=== PATIENT | male | born 1955 | race Caucasian/White ===

== ENCOUNTER → 2017-08-29 | Outpatient (CLI) | payer OTHER ==
[~2017-08-29] MED LIST: ADVA100A INH; ALBU17I INH; ALBU6.7H INH; HYDR-3583 PO; ZOFR4TAB PO
[2017-08-29 13:51] LABS: AUTOMATED NEUTROPHIL # 4.4 TH/MM3 (1.8-7.7); BASOPHIL # 0.1 TH/MM3 (0-0.2); BASOPHIL % 0.7 % (0.0-2.0); EOSINOPHIL # 0.5 TH/MM3 (0-0.4); EOSINOPHIL % 5.9 % (0.0-4.0); HEMATOCRIT 47.6 % (39.0-51.0); HEMO FLAGS DIFF FINAL; LYMPH % 29.7 % (9.0-44.0); LYMPHOCYTE # 2.3 TH/MM3 (1.0-4.8); MEAN CELL VOLUME 89.3 FL (80.0-100.0); MEAN CORPUSCULAR HGB CONC 34.7 % (32.0-36.0); MONO % 7.6 % (0.0-8.0); NEUT % 56.1 % (16.0-70.0); PLATELET COUNT 189 TH/MM3 (150-450); RED BLOOD COUNT 5.33 MIL/MM3 (4.50-5.90); RED CELL DISTRIBUTION WIDTH 13.4 % (11.6-17.2); WHITE BLOOD COUNT 7.8 TH/MM3 (4.0-11.0)
[2017-08-29 15:06] LABS: ALT (GPT) 200 U/L (12-78); ANION GAP 7 MEQ/L (5-15); AST (GOT) 120 U/L (15-37); BICARBONATE 27.7 MEQ/L (21.0-32.0); BLOOD UREA NITROGEN 14 MG/DL (7-18); CHLORIDE 104 MEQ/L (98-107); GLOMERULAR FILTRATION RATE 83 ML/MIN (>89); GLUCOSE,FASTING 76 MG/DL (74-99); POTASSIUM 3.8 MEQ/L (3.5-5.1); SODIUM (NA) 139 MEQ/L (136-145)
[2017-08-29 15:08] LABS: ALKALINE PHOSPHATASE 78 U/L (45-117); TOTAL BILIRUBIN ADULT 0.7 MG/DL (0.2-1.0)
--- NOTE | 2017-08-30 14:30 | EKG ---
Date Performed: 08/29/2017 Time Performed: 13:14:18 PTAGE: 62 years EKG: Sinus rhythm NORMAL ECG NO PREVIOUS TRACING DOCTOR: Jerrell Ramirez Interpretating Date/Time 08/30/2017 14:23:16
== END ==
LOC: CPRE 12:57
PROVIDERS: ATTEND Orthopaedic Surgery
DX: Z01.810 Encounter for preprocedural cardiovascular examination (principal); Z01.812 Encounter for preprocedural laboratory examination; S46.212A Strain of muscle, fascia and tendon of other parts of biceps, left arm, initial encounter; X58.XXXA Exposure to other specified factors, initial encounter
CPT/HCPCS: 36415; 80053; 80074; 85025; 93005

== ENCOUNTER → 2017-08-31 | Day surgery (SDC) | payer OTHER ==
[~2017-08-31] VITALS: Ht 177.8 cm; Wt 100.2 kg
[~2017-08-31] MED LIST changes: +ACETAMINOPHEN 1000 MG/100 ML 100 ML IV ONE; +ACETAMINOPHEN/HYDROcodone 325 MG/5 MG TAB PO PRN; -ALBU17I INH; +BUPIVACAINE HCL PF 0.5% 30 ML VIAL ONE; +CHLORHEXIDINE GLUCONATE 2 % 1 PACK (2 CLOTHS) TOPICAL PRN; +DEXAMETHASONE SOD PHOS 4 MG/ML VIAL IV ONE; +DO NOT ADM ANY ANTICOAGULANT DRUGS PRN; +GLYCOPYRROLATE 1 MG/5 ML SYRINGE IV PUSH ONE; +INSULIN HUMAN REGULAR 1,000 UNITS/10 ML VIAL SQ PRN; +LACTATED RINGER'S 1000 ML INJ 1,000 ML IV ONE; +LACTATED RINGER'S 1000 ML INJ 1,000 ML IV SCH; +LACTATED RINGER'S 1000 ML IV PRN; +LIDOCAINE HCL 1% PF 5 ML AMPULE OTHER ONE; +METOPROLOL TARTRATE 25 MG TAB PO PRN; +MIDAZOLAM HCL 2 MG/2 ML VIAL IV ONE; +MORPHINE SULFATE 4 MG/ML INJ IV ONE; +MORPHINE SULFATE 4 MG/ML INJ IV PUSH PRN; +NEOSTIGMINE 3 MG/3 ML SYR IV ONE; +ONDANSETRON HCL 4 MG/2 ML VIAL IV ONE; +ONDANSETRON HCL 4 MG/2 ML VIAL IV PUSH PRN; +POVIDONE IODINE 5% (ANTISEPSIS KIT) 4 APPLICATIONS EACH NARE PRN; +PROPOFOL 200 MG/20 ML AMP IV ONE; +ROCURONIUM INJ 50 MG/5 ML SYRINGE IV PUSH ONE; +ROPIVACAINE 0.5% PF INJ 30 ML VIAL ONE; +SODIUM CHLORID 0.9% 500 ML IV PRN; +SODIUM CHLORIDE 0.9% FLUSH 5 ML FLUSH IVF PRN; +SODIUM CHLORIDE 0.9% FLUSH 5 ML FLUSH IVF SCH; +ceFAZolin 2 GM PREMIX 50 ML IV SCH
--- NOTE | 2017-08-31 16:27 | RADRPT ---
EXAM DATE/TIME: 08/31/2017 15:46 [place] COMPARISON: No previous studies available for comparison. INDICATIONS : Lt bicep repair. MEDICAL HISTORY : None. SURGICAL HISTORY : None. ENCOUNTER: Subsequent ACUITY: 1 day PAIN SCORE: Non-responsive. LOCATION: Left Elbow FINDINGS: Biceps tendon anchor is evident. CONCLUSION: Bicep tendon anchor, anatomic alignment. Jean Carlos Rivera MD FACR on August 31, 2017 at 16:25 Board Certified Radiologist. This report was verified electronically.
[2017-08-31 17:45] VITALS: BP 124/82; PULSE 78; RESP 16; TEMP 97.8; O2SAT 94
--- NOTE | 2017-09-01 08:09 | MP ---
cc: MADELINE ROBB M.D. DATE OF SURGERY 08/31/2017 PREOPERATIVE DIAGNOSIS Ruptured distal biceps tendon left elbow. POSTOPERATIVE DIAGNOSIS Ruptured distal biceps tendon left elbow. OPERATIVE PROCEDURE Repair distal biceps tendon to radial to bicipital tuberosity left elbow. SURGEON Dr. Robb ANESTHESIA General TECHNIQUE After induction of general anesthesia, an axillary block, left upper extremity thoroughly prepped with alcohol and ChloraPrep, draped in routine fashion. A lazy S-shaped incision was made centered on the antecubital fossa starting lateral to the distal biceps and immediately medial to the mobile wad. Incision deepened into the subcutaneous tissue. Large veins were encountered. Some of the communicating veins were clamped, cut and ligated, but the main part of the venous system here was retracted anteriorly and medially freeing it from the lateral cutaneous nerve of the forearm. The lateral cutaneous nerve of the forearm was protected throughout the procedure. The biceps tendon was now identified and this was a subtotal rupture, so it is still intact in the sheath. This was incised. We saw clear fluid there once we got to the radial tuberosity, but we had to do some soft tissue dissection before that clamping and cutting and tying the recurrent radial vessels. Once we got down to the bicipital tuberosity an elevator and curette were used to clean the tuberosity followed by introduction of small Hohmann retractors. At this point in time, the bone was scraped and two Mitek super-anchors with #2 Tycron and #2 FiberWire was placed in these holes and confirmed fluoroscopically by imaging. They were in good position. One tail each of the FiberWire was then weaved into either border of the distal tendon in a whipstitch fashion and tied just over the musculotendinous junction. The two free Tycron were then passed in a modified Peterman fashion and once again tied over the musculotendinous junction. The other end of these sutures was then pulled bringing the tendon into close apposition to bone and these sutures were tied with the elbow in 90 degrees of flexion and forearm supination. Palpation reveals good apposition of tendon to bone and good repair. The wound was irrigated saline solution and then skin and subcutaneous tissue closed with interrupted 3-0 nylon vertical mattress sutures. Dressings were applied with Xeroform, 4x4s and Sof-Rol and a posterior splint was applied with a small anterior segment to give security. Once splints hardened, the patient was transferred to the recovery room in satisfactory condition. The patient tolerated the procedure well. Transfusions and complications, none. POSTOPERATIVE CONDITION Satisfactory PROGNOSIS Good ESTIMATED BLOOD LOSS About 30 mL MD YANNI Hill/DELPHINE /4:41 PM /8:02 AM
== END | disposition home or self-care (01) ==
LOC: HSDC 11:59
PROVIDERS: ATTEND Orthopaedic Surgery
DX: S46.212A Strain of muscle, fascia and tendon of other parts of biceps, left arm, initial encounter (principal); J45.909 Unspecified asthma, uncomplicated
CPT/HCPCS: 01710; 24341; 73070; 76000; C1713; J0131; J0690; J1100; J2250; J2270; J2405; J2710; J3010; J7120; J2795